=== PATIENT | female | born 1990 | race Two or more races ===

== ENCOUNTER 2018-06-16 21:06 | Emergency (ER) | payer MEDICAID, OTHER ==
[~2018-06-16] VITALS: Ht 160 cm; Wt 82.6 kg
[2018-06-16 21:25] LABS: Basophils # (auto) 0 uL; Basophils % (auto) 0.1 % (0.0-2.0); Eosinophils # (auto) 0 uL
[2018-06-16 21:27] LABS: Eosinophils % (auto) 0.1 % (0.0-7.0); Hematocrit 24.2 % (36.0-46.0); Hemoglobin 8.3 g/dL (12.2-16.2); Lymphocytes # (auto) 3.8 uL; Lymphocytes % (auto) 24.3 % (10.0-50.0); Mean Corpuscular Hemoglobin 28.4 pg (28.0-32.0); Mean Corpuscular Hgb Conc. 34.5 g/dL (32.0-36.0); Mean Corpuscular Volume 82.3 fL (80.0-100.0); Monocytes % (auto) 6.2 % (0.0-12.0); Neutrophils # (auto) 10.8 uL; Neutrophils % (auto) 69.3 % (37.0-80.0); Nucleated Red Blood Cells % 0.1 %; Platelet Count (auto) 295 10^3/uL (140-450); Red Blood Cells 2.94 10^6/uL (4.0-5.20); Red Cell Distribution Width 15.8 % (11.8-14.3); White Blood Cell 15.6 10^3/uL (4.4-10.8)
[2018-06-16] MEDS ORDERED: ONDANSETRON HCL 4 MG/2 ML VIAL ONE (21:43)
[2018-06-16] MEDS ORDERED: MORPHINE SULF INJ 2 MG/ML SYRINGE 1ML ONE (21:43)
[2018-06-16 21:45] LABS: Albumin 2.4 g/dL (3.4-5.0); Calcium 8.1 mg/dL (8.5-10.1); Potassium 3.8 mmol/L (3.5-5.1)
[2018-06-16] MEDS ORDERED: MORPHINE SULFATE 4 MG/ML SYR/VIAL IV ONE (21:45)
[2018-06-16] MEDS ORDERED: ONDANSETRON HCL 4 MG/2 ML VIAL IV ONE (21:45)
[2018-06-16] MEDS ORDERED: LACT. RINGERS/OXYTOCIN 20UNITS 1,000 ML IV ONE (21:45)
[2018-06-16 21:48] LABS: BUN/Creatinine Ratio 17.4; Bilirubin, Total 0.2 mg/dL (0.2-1.0); Total Protein 6.2 g/dL (6.4-8.2)
[2018-06-17] MEDS ORDERED: LORazepam 2MG/ML-1ML VIAL IV ONE
[2018-06-17 03:30] VITALS: BP 111/78
== END 2018-06-17 04:40 | disposition home or self-care (01) ==
LOC: EDBD 21:06 → ER 21:06
DX: O03.4 Incomplete spontaneous abortion without complication (principal); O46.92 Antepartum hemorrhage, unspecified, second trimester; Z3A.20 20 weeks gestation of pregnancy
CPT/HCPCS: 36415; 76856; 80053; 84702; 85025; 86850; 86900; 86901; 88305; 94761; 96365; 96366; 96375; 99285; J2060; J2405; J2590